=== PATIENT | female | born 1955 | race American Indian/Alaskan Native ===

== ENCOUNTER 2018-01-08 19:34 | Emergency (ER) | payer OTHER ==
[2018-01-08] MEDS ORDERED: PEPCID IV ONE (20:11)
[2018-01-08] MEDS ORDERED: NACL 0.9% 1000 ML 1,000 ML IV ONE (20:12)
[2018-01-08 20:21] LABS: BUN/Creatinine Ratio 15; Blood Urea Nitrogen 12 mg/dL (7-17); Calcium 8.4 mg/dL (8.4-10.2); Hemolysis Index 8
--- NOTE | 2018-01-08 20:25 | Emergency Department Report ---
HPI - General Chief Complaint: Allergic Reaction Time Seen by Provider: 01/08/18 20:04 - HPI HPI: 62-year-old female presents to the emergency department via EMS from home with a possible allergic reaction. Patient took clindamycin and a hydrocodone pill at around 4 PM this afternoon, and then an ibuprofen around 5 PM. About 45 minutes later she started having swelling of her eyes, some shortness of breath and felt like she began having a scratchy throat. EMS gave her epinephrine, Benadryl, Solu-Medrol and fluids. Patient says she is feeling better upon presentation but not completely resolved. She also has some associated nausea without vomiting. She denies any past medical history. She got the clindamycin and hydrocodone this morning when she went to see the dentist for a tooth abscess. She has taken ibuprofen in the past but is unsure whether she has taken the other 2 medications before. She has a known allergy to penicillins and strawberries. ED Past Medical Hx - Past Medical History Previous Medical History?: No - Surgical History Past Surgical History?: Yes Additional Surgical History: c section x3 - Social History Smoking Status: Never Smoker Substance Use Type: None - Medications Home Medications: Home Medications Medication Instructions Recorded Confirmed Last Taken Type Famotidine [Pepcid] 20 mg PO BID #8 tablet 01/09/18 Unknown Rx Sulfamethoxazole/Trimethoprim 1 each PO BID #14 tablet 01/09/18 Unknown Rx [Bactrim DS TAB] predniSONE [Deltasone] 20 mg PO QDAY #4 tab 01/09/18 Unknown Rx ED Review of Systems ROS: Stated complaint: ALLERGIC REACTION Other details as noted in HPI Comment: All other systems reviewed and negative Constitutional: denies: chills, fever Eyes: denies: eye pain, eye discharge, vision change ENT: throat pain. denies: ear pain Respiratory: shortness of breath. denies: cough, wheezing Cardiovascular: edema. denies: chest pain, palpitations Gastrointestinal: nausea. denies: abdominal pain, vomiting, diarrhea Genitourinary: denies: urgency, dysuria, discharge Musculoskeletal: denies: back pain, joint swelling, arthralgia Skin: denies: lesions, change in color Neurological: denies: headache, weakness, paresthesias Physical Exam - Physical Exam Vital Signs: Vital Signs 01/08/18 19:48 Temperature 97.9 F Pulse Rate 71 Respiratory 18 Rate Blood Pressure 142/56 O2 Sat by Pulse 99 Oximetry Physical Exam: GENERAL: The patient is well-developed well-nourished. HENT: Normocephalic. Atraumatic. Patient has moist mucous membranes. Oropharynx is clear. Mallampati 2. EYES: Extraocular motions are intact. Pupils equal reactive to light bilaterally. NECK: Supple. Trachea is midline. CHEST/LUNGS: Clear to auscultation. There is no respiratory distress noted. HEART/CARDIOVASCULAR: Regular. There is no tachycardia. There is no murmur. ABDOMEN: Abdomen is soft, nontender. Patient has normal bowel sounds. There is no abdominal distention. SKIN: Skin is warm and dry. There is some mild nonpitting bilateral periorbital swelling. There are a few urticaria seen to the neck and bilateral upper extremities. NEURO: The patient is awake, alert, and oriented. The patient is cooperative. The patient has no focal neurologic deficits. The patient has normal speech. Cranial nerves II through XII grossly intact. MUSCULOSKELETAL: There is no tenderness or deformity. There is no evidence of acute injury. ED Course Vital Signs 01/08/18 19:48 Temperature 97.9 F Pulse Rate 71 Respiratory 18 Rate Blood Pressure 142/56 O2 Sat by Pulse 99 Oximetry ED Medical Decision Making - Lab Data Result diagrams: 01/08/18 19:57 01/08/18 19:57 - Medical Decision Making Patient presents after what appears to be some type of allergic reaction. She was started on a new antibiotic this morning and a new pain medication and then also took some ibuprofen. She does not appear to have any anaphylaxis. There is no significant angioedema other than some nonpitting periorbital swelling. Because the patient had felt as if she was a little short of breath and had a scratchy throat, the patient received the full cocktail for allergic reactions in route with EMS including epinephrine, Solu-Medrol and Benadryl. She was given some Pepcid here and did require a second dose of Benadryl secondary to itching. Her labs are mostly unremarkable except for some mild hypokalemia with potassium of 3.3 that was replaced with potassium chloride. The patient was monitored in the emergency department for 5 hours and she says she is feeling much improved. The periorbital swelling has gone down. She has no complaints of any shortness of breath, throat swelling, trouble with swallowing , chest pain. She appears safe to attempt discharge home at this time. She'll go home with a different antibiotic to take for her dental abscess, Bactrim, and she will stop the clindamycin. She will go home with a few days of steroids , Pepcid and will pickle solution maker [id number] Benadryl. She will return to the emergency department immediately with any return or worsening of her symptoms or any acute distress. - Differential Diagnosis allergic reaction, angioedema, anaphylaxis Critical Care Time: No Critical care attestation.: If time is entered above; I have spent that time in minutes in the direct care of this critically ill patient, excluding procedure time. ED Disposition Clinical Impression: Itching Allergic reaction Qualifiers: Encounter type: initial encounter Qualified Code(s): T78.40XA - Allergy, unspecified, initial encounter Disposition: TO HOME OR SELFCARE Is pt being admited?: No Condition: Stable Instructions: Antibiotic Medication Allergy (ED) Additional Instructions: Please follow-up with your primary care physician and your dentist. Please stop taking the clindamycin and it is recommended that she stay away from the ibuprofen and hydrocodone until you can figure out what you are allergic to. I will start you on a different antibiotic, Bactrim. Return to the emergency Department with any worsening of your symptoms, any swelling of your lips or tongue, any shortness of breath, difficulty swallowing, or with any acute distress. Prescriptions: Famotidine [Pepcid] 20 mg PO BID #8 tablet predniSONE [Deltasone] 20 mg PO QDAY #4 tab Sulfamethoxazole/Trimethoprim [Bactrim DS TAB] 1 each PO BID #14 tablet Referrals: IVONNE TOMAS MD [Primary Care Provider] - 3-5 Days Time of Disposition: 00:24
[2018-01-08 20:38] LABS: Basophils % (Auto) 0.2 % (0.0-1.8); Eosinophils # (Auto) 0.2 K/mm3 (0.0-0.4); Eosinophils % (Auto) 1.6 % (0.0-4.3); Hematocrit 36.3 % (30.3-42.9); Hemoglobin 11.6 gm/dl (10.1-14.3); Lymphocytes # (Auto) 2.2 K/mm3 (1.2-5.4); Lymphocytes % (Auto) 18.9 % (13.4-35.0); Mean Corpuscular HGB Conc 32 % (30-34); Mean Corpuscular Hemoglobin 30 pg (28-32); Mean Corpuscular Volume 93 fl (79-97); Monocytes # (Auto) 1.2 K/mm3 (0.0-0.8); Monocytes % (Auto) 9.9 % (0.0-7.3); Platelet Count 168 K/mm3 (140-440); Red Blood Count 3.92 M/mm3 (3.65-5.03); Red Cell Distribution Width 16.7 % (13.2-15.2)
[2018-01-08] MEDS ORDERED: K-DUR PO ONE (21:05)
[2018-01-08] MEDS ORDERED: BENADRYL IV ONE (22:10)
[2018-01-09 00:29] VITALS: BP 129/68
== END 2018-01-09 00:46 | disposition home or self-care (01) ==
LOC: ED 19:34
DX: T78.40XA Allergy, unspecified, initial encounter (principal); L29.9 Pruritus, unspecified; Z88.0 Allergy status to penicillin; Z91.018 Allergy to other foods
CPT/HCPCS: 36415; 80048; 85025; 96361; 96374; 96375; 99283; J1200; J7030